=== PATIENT | male | born 2000 | race Caucasian/White ===

== ENCOUNTER → 2023-05-09 14:42 | Outpatient (BNVA) | payer MEDICAID, SELFPAY | PROVIDERS: Visit Provider Psychiatry & Neurology Psychiatry | DX: F84.0 Autistic disorder (principal); Z79.899 Other long term (current) drug therapy; F17.200 Nicotine dependence, unspecified, uncomplicated; F90.9 Attention-deficit hyperactivity disorder, unspecified type; F41.1 Generalized anxiety disorder | CPT/HCPCS: 80053; 80061; 80183; 83036; 84443; 85025 ==